=== PATIENT | male | born 1945 | race Caucasian/White ===

== ENCOUNTER 2016-06-05 07:54 | Inpatient (IN) | payer MEDICARE ==
[~2016-06-05] VITALS: Ht 182.9 cm; Wt 80.8 kg
--- NOTE | ~2016-06-05 | CATH ---
Cardiac Diagnostic + PCI Report Demographics Patient Name TERENCE Dixon Gender Male Date of 1945 Age 70 year(s) Patient Number [id number] Date of Study 06/05/2016 Visit Number [id number] Room Number 310 Corporate ID Ht 182.88 cm Wt 80.74 kg Accession Number [id number] BSA 2.03 m kg/m Referring Mookie Love Primary Physician Physician MD Estephania Mirza MD Performing Tunuguntma Secondary Physician Physician Robyn SANTOS [facility] Ass[facility] Physician Physician Robyn SANTOS Interventional [facility] Physician Linseed Oil Boiler Physician Robyn SANTOS Findings and Conclusions Diagnostic Findings and Conclusion ANTERIOR STEMI: Severe 2 vessel CAD with 100% mLAD being the culprit lesion and 99% dCirc lesion. RCA without any significant obstructive CAD (non selective image only, attempted 3 different catheters to selectively engage, JR4, Pino right and AR mod - but did not persist given h/o CKD and I wanted to minimize contrast use). Previously placed LAD and RCA stents are patent. Diagnostic Recommendations Immediate PCI of LAD and Circ. Interventional Findings and Conclusion Successful PCI of mLAD lesion with 3.0x16 Synergy APRYL, return of SHAJI III flow. Successful balloon angioplasty of D3 lesion prior to stenting, vessel is too small to stent, plan was to keep artery open, and it was after PCI of mid LAD. Successful PCI of dCirc lesion with 3.0x28 Synergy APRYL, return of SHAJI III flow. Moderate diffuse disease in mid cx proximal to stented segment. Interventional Recommendations Dual antiplatelet therapy for a minimum of 1 year. Continued risk factor modification and aggressive medical therapy for CAD. Neurology to see regarding the continued use of Coumadin for an old stroke. I would like to discontinue so we can continue asa and brilinta post STEMI in patient with numerous stents and residual moderate disease in mid Cx and small diagonal branch. Cardiac Rehab for education and exercise instruction. Follow up with an [facility] provider in 7 days post discharge. Procedure Description The patient was emergently brought to the diagnostic cardiac catheterization laboratory in a non-sedated state. Informed consent was obtained in the written and verbal form after the risks and benefits were explained. The patient and family had no further questions and agreed to proceed. The planned puncture-incision site(s) were shaved and prepped with ChloraPrep and draped in the usual sterile manner. Conscious sedation, supplemental oxygen, and pain control medications were delivered by a registered nurse under physician guidance. Surface ECG rhythm, blood pressure measurement, and pulse oximetry were monitored throughout the procedure. Arterial access. The right radial access site was infiltrated with lidocaine. The vessel was entered with the Seldinger technique. A 6Fr sheath was advanced into the vessel and used for catheter placement. Selective right coronary angiography. A JR4 catheter was advanced into the right coronary vessel ostium under fluoroscopic guidance. Contrast was injected by hand. Images were obtained in multiple projections. Selective left coronary angiography. A EBU 3.5 guide catheter was advanced into the left coronary vessel ostium under Fluoroscopic guidance. Contrast was injected by hand. Images were obtained in multiple projections. Angioplasty and Stent Placement: A EBU 3.5 guiding catheter was used to intubate the vessel. A 0.14 Runthrough wire was then used to cross the lesion. A 2.5x12 Emerge balloon catheter was placed across the LAD lesion and inflated multiple times. The balloon catheter was removed and reprepped. A second 0.14 Runthrough wire was advanced down the D3 vessel and a 2.0x15 Emerge balloon was placed across the D3 lesion and inflated multiple times. That balloon catheter was then removed. A 3.0x16 Synergy Drug Eluting Stent was placed across the LAD lesion and inflated. Next, the Runthrough wire was repositioned into the the Circumflex artery. The 2.5x12 Emerge balloon was placed across the distal Circumflex lesion and inflated. The balloon catheter was then removed. A 3.0x28 Synergy Drug Eluting Stent was placed across the Circumflex lesion and inflated. Post placement angiograms were performed. Selective right coronary angiography. Attempts were again made to better engage the RCA with a WR and AR Mod catheters without success. Left heart catheterization. A angled pigtail catheter was advanced across the aortic valve to the left ventricle under fluoroscopic guidance. Resting hemodynamics were obtained. Arterial artery hemostasis was achieved with 13 cc air in the TR band. The patient was transferred to the ICU via a monitored cart accompanied by a director of labor relations nurse. The patient left the laboratory in stable condition. Diagnostic Cath Status: Emergency Interventional Cath Status: Emergency Procedure Procedure Type Diagnostic procedure:Angiography:, Coronary Angios w/LHC PCI procedure:Drug Eluting Coronary Stent:, LAD, CFX, PTCA:, Diagonal Indications: Acute IA, chronic kidney disease, Prior PCI with stent placement, Hyperlipidemia, Hypertension and Previous stroke. The procedure was explained in detail to the patient. Risks, complications and alternative treatments were reviewed. Written consent was obtained. Medications Reviewed with Patient prior to Procedure. Complications: No Complication. Angiographic Findings Dominance: Right Cardiac Arteries and Lesion Findings LMCA: Normal (0% Stenosis). LAD: Abnormal. Lesion on Mid LAD: Distal subsection.100% stenosis 16 mm length reduced to 0%. Pre procedure SHAJI 0 flow was noted. Post Procedure SHAJI III flow was present. The guidewire cross was successful.A poor run off was present.Culprit lesion. Treatment results:Interventional treatment was successful. Devices used - RUNTHROUGH WIRE 0.014" X 180CM. Number of passes: 1. - CATH BAL RX EMERGE 2.5X12. 5 inflation(s) to a max pressure of: 12 rubén. - CATH STENT SYNERGY 3.0 X 16. 1 inflation(s) to a max pressure of: 14 rubén. Lesion on 3rd Diag: Proximal subsection.80% stenosis reduced to 0%. Pre procedure SHAJI II flow was noted. Post Procedure SHAJI III flow was present. The guidewire cross was successful. Treatment results:Interventional treatment was successful. Devices used - RUNTHROUGH WIRE 0.014" X 180CM. Number of passes: 1. - CATH BAL RX EMERGE 2.0X15. 2 inflation(s) to a max pressure of: 6 rubén. LCx: Abnormal. Lesion on Dist CX: 99% stenosis 28 mm length reduced to 0%. Pre procedure SHAJI II flow was noted. Post Procedure SHAJI III flow was present. The guidewire cross was successful. Devices used - CATH BAL RX EMERGE 2.5X12. 1 inflation(s) to a max pressure of: 8 rubén. - CATH STENT SYNERGY 3.0 X 28. 1 inflation(s) to a max pressure of: 14 rbuén. Lesion on Mid CX: 40% stenosis . Lesion on 1st Ob Elena% stenosis . RCA: Abnormal.There is a previous stent on Mid RCA showing wide patency. Lesion on Mid RCA: 20% stenosis . Coronary Tree Procedure Data Procedure Date Date: 06/05/2016Start: 08:42 AMEnd: 09:46 AM Entry Locations - Percutaneous access was performed through the Right Radial artery (Primary location). A 6 Fr sheath was inserted. Hemostasis was successfully obtained using a TR band. Closure Comments: 13 cc air in TR Band. Procedure Medications Order and Administration + + + + + !Time !Medication !Dosage !Route ! + + + + 06/05/2016 08:44 !Radial Verapamil !2.5 mg !I.A. ! !AM ! ! ! ! + + + + 06/05/2016 08:46 !Fentanyl !50 mcg !I.V. ! !AM ! ! ! ! + + + + + 06/05/2016 08:46 !Versed !1 mg !I.V. ! !AM ! ! ! ! + + + + 06/05/2016 08:54 !Angiomax (Bivalirudin) !12 ml !I.V. bolus ! !AM !(ACC_5) ! ! ! + + + + + !06/05/2016 08:57 !Brilinta (Ticagrelor) !180 mg !P.O. ! !AM !(ACC_20) ! ! ! + + + + + !06/05/2016 08:59 !Angiomax (Bivalirudin) !1.75 mg/kg/hr!I.V. drip ! !AM !(ACC_5) ! ! ! + + + + + !06/05/2016 09:21 !Nitroglycerin !100 mcg !I.C. ! !AM ! ! ! ! + + + + + Devices Used - [facility] 6FR MULTIPACK CATHETERSwas used for:Right coronary angiography. - AGUIDE CATHETER 6FR EBU 3.5 100CMwas used for:Left coronary angiography. - [facility] 5F WR CATHETER 100CMwas used for:Right coronary angiography.Unable to cannulate the vessel. - ACATH 6F AR MOD CATHETER 100CMwas used for:Right coronary angiography.Unable to cannulate the vessel. - ACATH 6FR MULTIPACK CATHETERSwas used for:LV Pressures. - AGUIDE CATHETER 6FR EBU 3.5 100CMwas used for:LAD Intervention. - AGUIDE CATHETER 6FR EBU 3.5 100CMwas used for:Circumflex Intervention. Contrast Material - Isovue 13517 ml - Isovue 83859 ml Fluoroscopy Time: Diagnostic: 16:42 minutes. Total: 16:42 minutes. Fluoroscopy Dose: Diagnostic: 1432 mGy. Total: 1432 mGy. Estimated Blood Loss: 10 ml. Medical History Allergies - Other:(Niacin). Risk Factors The patient risk factors include:prior PCI on 11/22/2000;cerebrovascular disease, hypercholesterolemia, hypertension, dyslipidemia and renal failure. Admission Data Admission Date: 06/05/2016 Admission Time: 09:49 AM Admit Source: Emergency department Insurance Payors: Medicare. Clinical Evaluation Leading to Procedure Diagnosed on 06/05/2016 08:00 AM. - The patient's CAD presentation was assessed as: STEMI. - Anti-anginal medications were prescribed during the past two weeks. The medication is: Beta Blockers. Hemodynamics Condition: Rest Estimated: Heart Rate: 73 bpm Pressures (mmHg) +-----+ + !Site !Pressure ! +-----+ + !AO !80/48 (60) ! +-----+ + !LV !108/8 ,19 ! +-----+ + !AO !117/57 (84) ! +-----+ + !LV !103/4 ,27 ! +-----+ + Valve Gradients and Areas + +---------+---------+---------+ +---------+ + !Valve !Peak !Mean !Area !Index !Flow !Source ! + +---------+---------+---------+ +---------+ + !Aortic !0 !0 ! ! ! ! ! + +---------+---------+---------+ +---------+ + !Aortic !0 !0 ! ! ! ! ! + +---------+---------+---------+ +---------+ + Signatures
--- NOTE | ~2016-06-05 | ECH ---
Transthoracic Echocardiography Report (TTE) Demographics Patient Name SOFIA PRATT Date of Study 06/05/2016 Patient Number [id number] Visit Number [id number] Date of 1945 Room Number 310 Gender Male Number Age 70 year(s) Referring Mark Carlson Laborer Driver Luna [facility] Physician Physician Interpreting Mo Miramontes MD Shovel Mechanic Physician Supervising Ordering Mark Carlson MD/LUAN Physician Nurse Stress Fashion Consultant Conclusions Summary Technically good exam. The estimated left ventricular ejection fraction is 60%. Diastolic assessment reveals Grade II pseudonormal diastolic function . Mild-moderate mitral regurgitation by color Doppler. There is mild aortic regurgitation by color Doppler. Mild tricuspid regurgitation by color Doppler. There is mild pulmonary hypertension. The pulmonary pressure (RVSP) is 35 mmHg. The ascending aorta appears mildly dilated. The maximum diameter measures 3.6 cm. Procedure Type of Study TTE procedure:Echo Complete SF. Procedure Date Date: 06/05/2016 Start: 11:29 AM Technical Quality: Good visualization Indications:Chest pain and Coronary artery disease. Additional Indications:STEMI,s/p PCI Appropriate Use Criteria: 9 Height: 72 inches Weight: 178 pounds BSA: 2.03 m Rhythm: NSR HR: 67 bpm BP: 114/61 mmHg Allergies - Other:(Niacin). M-Mode/2D Measurements LV Diastolic Dimension: 5.51 cm LV Systolic Dimension: 4.35 cm LV Septum Diastolic: 0.75 cm LV PW Diastolic: 0.81 cm AO Root Dimension: 3.26 cm Cardiac Output: 6.54 l/min LA Dimension: 4.05 cm Cardiac Index: 3.22 l/min*m RV Diastolic Dimension: 3.29 cm LA volume index: 26 ml/m LVOT: 2.2 cm LVOT VTI: 25.71 cm RV Base: 3.4 cm LV Stroke volume: 97.68 ml RV Mid: 2.4 cm LV Stroke volume index: 48.12 ml/m TAPSE: 1.9 cm TDI-S': 12 cm/s Doppler Measurements AV Peak Velocity: 1.5 m/s MV Peak E-Wave: 1.01 m/s AV Peak Gradient: 9 mmHg MV Peak A-Wave: 0.99 m/s AV Mean Gradient: 5.29 mmHg MV E/A Ratio: 1.02 LVOT Peak Velocity: 1.13 m/s MV P1/2t: 66.1 msec AV Area (Continuity):2.86 cm AV P1/2t: 555.2 msec MV Deceleration Time: 232.1 msec TR Velocity:2.85 m/s MV Area (PHT): 3.33 cm TR Gradient:32.49 mmHg PV Peak Velocity: 0.77 m/s Estimated RAP:3 mmHg PV Peak Gradient: 2.39 mmHg Estimated RVSP: 35 mmHg Estimated PASP: 35.49 mmHg E' Septal Velocity: 0.08 m/s A' Septal Velocity: 0.12 m/s E' Lateral Velocity: 0.09 m/s A' Lateral Velocity: 0.12 m/s RA Area: 10.42 cm Findings Left Ventricle Normal left ventricle size and function. Diastolic assessment reveals Grade II pseudonormal diastolic function . Right Ventricle Normal right ventricle structure and function. Left Atrium Normal left atrial size. Right Atrium Normal right atrial size. Mitral Valve Normal mitral valve structure and function. Mild-moderate mitral regurgitation by color Doppler. Aortic Valve The aortic valve is mildly sclerotic. There is mild aortic regurgitation by color Doppler. Tricuspid Valve Normal tricuspid valve structure and function. Mild tricuspid regurgitation by color Doppler. There is mild pulmonary hypertension. The pulmonary pressure (RVSP) is 35 mmHg. Pulmonic Valve Normal pulmonic valve structure and function. Pericardial Effusion No evidence of pericardial effusion. Miscellaneous The ascending aorta appears mildly dilated. The maximum diameter measures 3.6 cm. Pleural Effusion No evidence of pleural effusion. Contractility Score LV regional wall motion:(0-Non visualized 1-Normal 2-Hypokinesis 3-Akinesis 4-Dyskinesis 5-Aneurysm) Signature
--- NOTE | 2016-06-08 10:26 | HP ---
ADMIT: 06/05/2016 RM/LOC: 310 [facility] MR#: [id number] [address] [address] JEFRY PRATT Destiny [address] [place] [address] History and Physical SEX: M AGE: 70 : 1945 DATE OF SERVICE: REASON FOR ADMISSION: Anterior ST elevated myocardial infarction. Jovanna Damon RN, scribing for Dr. Robyn Flores. HISTORY OF PRESENT ILLNESS: Jefry is a pleasant 70-year-old gentleman, who presented to [facility] via EMS this morning with complaints of chest discomfort. He is actually from [place] and was [place] when he developed chest discomfort that he described as a severe tightness, 10/10, radiating down his arms. He [place] his [place] and had his call 911. The patient was brought to [facility] via EMS. I do not have EKG from ambulance crew but on arrival, EKG was performed, demonstrating anterior ST elevation. He continued to have chest discomfort despite nitroglycerin at an 8/10 that he described as a pressure. He is somewhat confused in the ER with direct questions regarding chest discomfort, resolution with medications, he responds with past medical history instead. His provides much of his information today. Jefry actually saw Dr. Best two days ago in [place] for checkup at that time, he had been doing well. He does have history of chronic kidney disease stage 3 and was recently taken off spironolactone because of abdominal symptoms. He states he cannot take Plavix because of nausea. He is also allergic to Niaspan. He is on Coumadin with history of stroke in the past. Lab work is pending currently. In the emergency room, he is given Lopressor, aspirin, nitroglycerin, and heparin. PAST MEDICAL HISTORY: 1. Coronary artery disease, status post PCI to mid LAD and mid RCA in 2000. Last echocardiogram showed EF of 60% with mild aortic regurgitation. 2. Kolb's esophagus. 3. BPH. 4. History of CVA on coumadin for several years. 5. Osteoarthritis. 6. Obstructive sleep apnea, unable to use CPAP. PAST SURGICAL HISTORY: 1. PCI. 2. Cholecystectomy. 3. Tonsillectomy with adenoidectomy. ALLERGIES: DOCUMENTED ALLERGIES INCLUDE NIASPAN. THE PATIENT REPORTS INTOLERANCE TO PLAVIX. HOME MEDICATIONS: 1. Amlodipine 10 daily. 2. Aspirin 81 mg daily. 3. Atenolol 25 daily. ADMIT: 06/05/2016 RM/LOC: 310 [facility] MR#: [id number] [address] [address] JEFRY PRATT [address] [place] [address] History and Physical SEX: M AGE: 70 : 1945 4. CoQ10 at 100 daily. 5. CPAP periodically at night. 6. Losartan 50 daily. 7. Multivitamin daily. 8. [place]annock-3 daily. 9. He is in a REVEAL study for a study drug. 10.Pantoprazole 40 mg daily. 11.Terazosin two capsules totaling 4 mg at bedtime. 12.Tramadol 50 every 6 hours p.r.n. 13.Coumadin managed by [facility]. 14.Zinc 50 mg daily. SOCIAL HISTORY: Jefry is . He lives at home with his . He has two daughters. He has never been a smoker. He denies any alcohol, drug, or caffeine use. He follows a low-fat, low-cholesterol, low-salt diet. REVIEW OF SYSTEMS: Unobtainable due to the patient's continued chest pain and confusion. PHYSICAL EXAMINATION: VITAL SIGNS: Blood pressure 154/79, heart rate 72, respirations 16, oxygenation 99% on O2. GENERAL: Alert, oriented x3, but somewhat confused on history. SKIN: [place], warm and dry. EYES: Sclerae clear. No xanthelasmas. ENT: Oral mucosa is pink and moist. No jugular venous distention or carotid bruits. CHEST: Respirations are even and unlabored. Lungs are clear to auscultation. HEART: Regular rate and rhythm. Normal S1, S2. No murmurs, rubs or gallops. ABDOMEN: Soft and nontender. MUSCULOSKELETAL: Gait is normal. EXTREMITIES: Peripheral pulses palpable. No clubbing, cyanosis or edema. PSYCHIATRIC: Alert and oriented. Mood and affect are appropriate. DIAGNOSTIC DATA: Lab work is pending. EKG shows ST elevation, anterior leads, with no reciprocal changes. ASSESSMENT AND PLAN: 1. ST elevated myocardial infarction, anterior leads, on EKG. 2. Anticoagulation, on Coumadin. It appears to be for h/o CVA. 3. Hypertension. 4. Hyperlipidemia. 5. History of cerebrovascular accident. ADMIT: 06/05/2016 RM/LOC: 310 [facility] MR#: [id number] [address] [place] [id number] JEFRY PRATT [address] [place] [address] History and Physical SEX: M AGE: 70 : 1945 I will take Jefry emergently to Cardiac Catheterization Lab given his EKG changes and continued symptoms. I discussed with him the risks and benefits, as well as to his given his current mental status. She states understanding and is agreeable to proceeding at this time. He does have chronic kidney disease and she is aware of increased complications because of that. I will amend my plan once cardiac catheterization has been completed. Since we can not use plavix and I do prefer pt being on brilinta since he is here with STEMI, I will have neurology evaluate and determine need to be on coumadin. I have read and agree with the documentation that has been completed regarding this visit. By signing this record, I attest that the documentation was completed in my physical presence and is an accurate record of the encounter. Jovanna Damno RN / Robyn Flores MD / hellen JOB #: [id number] CC: Robyn Flores, Attending Physician Robyn Flores, Family Physician Efren Best MD
[2016-06-08] MEDS ORDERED: NORVASC DPS10 MG PO (15:01)
[2016-06-08] MEDS ORDERED: TENORMIN-DPS25 MG PO (15:02)
[2016-06-08] MEDS ORDERED: ULTRAM DPS50 MG PO (15:02)
[2016-06-08] MEDS ORDERED: HYTRIN2 MG PO (15:02)
[2016-06-08] MEDS ORDERED: COZAAR DPS50 MG PO (15:02)
[2016-06-08] MEDS ORDERED: ASA CHILDREN'S81 MG PO (15:03)
[2016-06-08] MEDS ORDERED: PROTONIX40 MG PO (15:03)
[2016-06-08] MEDS ORDERED: OMEGA-3 DPS1000 MG PO (15:04)
[2016-06-08] MEDS ORDERED: COQ-10100 MG PO (15:04)
[2016-06-08] MEDS ORDERED: SINGULAIR10 MG PO (15:05)
[2016-06-08] MEDS ORDERED: ZINC50 M1 PO (15:05)
[2016-06-08] MEDS ORDERED: THERAPEUTIC MUL1 TAB PO (15:05)
[2016-06-08] MEDS ORDERED: LIPITOR80 MG PO (15:05)
[2016-06-08] MEDS ORDERED: NITROSTAT0.4 MG SL (15:06)
[2016-06-08] MEDS ORDERED: BRILINTA90 MG PO (15:06)
--- NOTE | 2016-06-10 15:36 | ER ---
ADMIT: 06/05/2016 RM/LOC: 310 [facility] MR#: [id number] [id number] [address] SOFIA PRATT [address] [place], [place] [address] Emergency Room Report SEX: M AGE: 70 : 1945 DATE: 06/05/2016 ADDENDUM: A 70-year-old white male coming in with chest pain. He has history of chest pain and stents. He was driving from [place] to [place] when he started to have chest pain. They drove him off the [place] and picked up by [facility] and they brought him over. They thought that he had an acute VA, however, he had no reciprocal leads. He did have some borderline V2, V3, and V1 changes. This could be ischemic. At this time, I did speak to Cardiology instructional technology coordinator, initiated cardiac routine, then she said she wanted to take him over to labeling associate. medical lab director orders then were initiated. He will be taken to labeling associate at this time. His pain is not getting better with nitroglycerin and morphine. CONDITION ON DISCHARGE: Critical, but stable at this time. Dakota Damico MD/ francescal JOB #: [id number] CC: Robyn Flores MD, Attending Physician Robyn Flores MD, Family Physician
--- NOTE | 2016-06-16 10:41 | CO ---
ADMIT: 06/05/2016 RM/LOC: 310 [facility] MR#: [id number] [address] [address] SOFIA PRATT [address] [place], [place] [address] Consultation SEX: M AGE: 70 : 1945 DATE OF CONSULTATION: 06/05/2016 ATTENDING PHYSICIAN: Robyn Flores CONSULTING PHYSICIAN: Jorge Hernandez MD REASON FOR CONSULTATION: Review of secondary stroke prevention. HISTORY OF PRESENT ILLNESS: The patient is a 70-year-old gentleman with medical history as outlined below and mainly history of lacunar stroke in 01/2004 who was admitted to [facility] with chest pain, underwent left heart catheterization with stent placement. The patient is placed on Brilinta and aspirin. The Cardiology taking questions secondary stroke prevention, but he needs to be on anticoagulation. We obtained medical records from his admission in 2003 and as per review, It appears to be that the patient suffered from lacunar infarction in the right dorsal lateral margin of the thalamus and subcortex. He was already on aspirin prior to the stroke, therefore the Plavix was added. Unfortunately, the patient did not tolerate the Plavix, therefore he was started on Coumadin in addition to the aspirin. I did not identify any other reason for anticoagulation. The patient does not have atrial fibrillation in history. In fact, he visited with MAKAYLA 2 days ago and as per note, there is no mention of atrial fibrillation. The patient also denies any testing for hypercoagulable state that would be a reason for anticoagulation. He did not follow with neurologist after his stroke, but I believe he was supposed to be referred to . PAST MEDICAL HISTORY: CAD status post PCI in 2000 and today, history of right subcortical thalamic lacunar stroke in 2003, hypertension, hyperlipidemia, Kolb's esophagus, BPH, JAS, cholecystectomy, and tonsillectomy. ALLERGIES: THE PATIENT IS INTOLERANT TO PLAVIX. ALLERGIES INCLUDE NIASPAN. HOME MEDICATIONS: Included: 1. Amlodipine. 2. Aspirin. 3. Atenolol. 4. Coenzyme Q10. 5. Losartan. 6. Multivitamins. 7. [place]. 8. He is on REVEAL study drug. 9. Pantoprazole. 10.Terazosin. 11.Tramadol. 12.Coumadin. 13.Zinc. ADMIT: 06/05/2016 RM/LOC: 310 [facility] MR#: [id number] [address] [address] SOFIA PRATT [address] [place] [address] Consultation SEX: M AGE: 70 : 1945 SOCIAL HISTORY: No alcohol. No smoking. REVIEW OF SYSTEMS: All systems reviewed, negative except as per HPI and cardiology, chest pain. FAMILY HISTORY: Noncontributory. Mother had Alzheimer disease. PHYSICAL EXAMINATION: VITAL SIGNS: 96.2 temperature, heart rate 75, respirations 16, blood pressure 114/61, and saturation 98% on room air. GENERAL: The patient appears to be in no acute discomfort examined while supine in bed. HEAD: Normocephalic. NECK: Supple. CHEST: Normal respiratory rises. CARDIOVASCULAR: Regular rate and rhythm. ABDOMEN: Nondistended. EXTREMITIES: No clubbing or cyanosis. There is a swelling in left lower extremity around the ankle. NEUROLOGICAL EXAMINATION: The patient is awake, alert, appropriately oriented. He does not have any issues with recent or remote memory. He is euthymic. Affect is congruent with mood. Cranial nerve examination reveals cranial nerve II, visual rodriguez intact. III, IV, and extraocular muscles intact. Pupils are equal and reactive. V, facial sensation is intact. VII, face is mildly asymmetric with left lower facial weakness which is subtle. Hearing to voice is intact for VII and IX and X. Uvula midline. Palate symmetric. XI shoulder shrug symmetric, XII tongue is midline, fairly moveable. Motor examination reveals very subtle left-sided weakness but otherwise full strength. Fine motor movements are slightly slower on left side. Sensory to touch, nonlateralizing. Reflexes hyperreflexia throughout, but downgoing toes bilaterally. No sustained clonus. Gait deferred as he is status post procedure. LABORATORY DATA: Labs reviewed. No head imaging available. Reviewed records ADMIT: 06/05/2016 RM/LOC: 310 [facility] MR#: [id number] [address] [address] SOFIA PRATT [address] [place] [address] Consultation SEX: M AGE: 70 : 1945 from the outside hospital, which is present in chart. ASSESSMENT: History of right thalamic lacunar ischemic stroke in 2003. Due to intolerance to Plavix he was started on Coumadin for secondary stroke prevention. PLAN: In regard to current situation, I believe that aspirin and Brilinta are more appropriate for secondary stroke prevention. Discussed with family in length and there is no need for anticoagulation in regards to this particular stroke. Thank you very much for this interesting consultation. Jorge Hernandez MD/ hellen JOB #: [id number] CC: Robyn Flores, Attending Physician Robyn Flores, Family Physician
--- NOTE | 2016-07-03 17:44 | DS ---
ADMIT: 06/05/2016 RM/LOC: 310 [facility] MR#: [id number] [address] [address] SOFIA PRATT [address] [place] [address] General Discharge Summary SEX: M AGE: 70 : 1945 ADMISSION DATE: 06/05/2016 DISCHARGE DATE: 06/07/2016 FINAL DIAGNOSES: 1. Anterior ST elevation myocardial infarction. 2. History of cerebrovascular accident, on Coumadin for anticoagulation. 3. Hypertension. 4. Hyperlipidemia. 5. Coronary artery disease, status post percutaneous coronary intervention of LAD and circumflex. CONSULTS: Dr. Hernandez for Neurology due to his history of a stroke. DIAGNOSTICS/PROCEDURES: Chest x-ray, 06/05/2016, probable minimal fibrotic or atelectatic changes in the left lung base, no acute findings. pipelines laborer report, severe two-vessel coronary artery disease with 100% mid LAD being the culprit lesion and 99% distal circumflex RCA. No significant obstructive coronary artery disease, non-selective images only. We were unable to engage. History of a previously placed LAD and RCA stent. Immediate PCI of the LAD and circumflex was undertaken at that time. Echocardiogram, 06/05/2016, showed an EF of 60%, [id number] mitral regurgitation, mild aortic regurgitation, mild tricuspid regurgitation, pulmonary artery systolic pressures of 35 mmHg with a mildly dilated ascending aorta of 3.6 cm. HOSPITAL COURSE: The patient admitted to the emergency room complaining of chest discomfort. He did have a known history of coronary artery disease, status post PCI to his diagonal and to his RCA in the past. His EKG demonstrated anterior ST elevation. He was taken emergently to the pipelines laborer where he was found to have 100% mid LAD stenosis along with a 99% distal circumflex stenosis which both received stents. He did have a history of a CVA and was on anticoagulation with Coumadin for that. Because of this, we did consult Neurology for recommendations on appropriate anticoagulation for CVA prevention. Dr. Hernandez saw the patient and recommended, because of his history of a right thalamic lacunar ischemic stroke in 2003 and his intolerance for Plavix, that aspirin and Brilinta be the best medications for anticoagulation for reduction of stroke and also for anticoagulation in the setting of his recent PCI and ST-elevated myocardial infarction. The next day, he had no chest pain or arrhythmias. He was started on Toprol and losartan was resumed. He was transferred to telemetry. His Coumadin was stopped in favor of aspirin and Brilinta. On 06/07/2016, he was felt stable for discharge. He was given a referral for cardiac rehab. He is scheduled to follow up with Dr. Boyd at [facility] in 1-2 weeks. DISCHARGE MEDICATIONS: Medications on discharge: 1. Aspirin 81 mg p.o. daily. 2. Brilinta 90 mg p.o. b.i.d. 3. Coenzyme Q10. 4. Cozaar 50 mg p.o. daily. 5. Hytrin 4 mg p.o. at bedtime. ADMIT: 06/05/2016 RM/LOC: 310 [facility] MR#: [id number] [address] [address] SOFIA PRATT [address] [place] [address] General Discharge Summary SEX: M AGE: 70 : 1945 6. Lipitor 80 mg p.o. at bedtime. 7. Norvasc 10 mg p.o. daily. 8. [place]-3. 9. Zinc 50 mg p.o. at bedtime. 10.Protonix 40 mg p.o. daily. 11.Singulair 10 mg p.o. at bedtime. 12.Therapeutic multivitamin one tab p.o. at bedtime. 13.Ultram 100 mg p.o. b.i.d. 14.He went home on atenolol 25 mg p.o. daily. 15.Warfarin was stopped. VITAL SIGNS AT DISCHARGE: Blood pressure 147/85, pulse of 89, respirations of 16, temp of 97.3. DISCHARGE DISPOSITION: To home. DISCHARGE CONDITION: Stable. AYAAN Haeys / Robyn Flores MD / hellen JOB #: [id number] CC: Robyn Flores MD, Attending Physician Robyn Flores MD, Family Physician
== END 2016-06-07 09:36 | disposition home or self-care (01) | DRG 247 ==
LOC: ER 07:54 → SSS 08:10 → 3ICU 09:49
PROVIDERS: ADMIT Internal Medicine Interventional Cardiology
PROC: 4A023N7 Measurement of Cardiac Sampling and Pressure, Left Heart, Percutaneous Approach (ICD-10-PCS; principal; 2016-06-05)
PROC: 027135Z Dilation of Coronary Artery, Two Arteries with Two Drug-eluting Intraluminal Devices, Percutaneous Approach (ICD-10-PCS; principal; 2016-06-05)
PROC: 02703ZZ Dilation of Coronary Artery, One Artery, Percutaneous Approach (ICD-10-PCS; principal; 2016-06-05)
PROC: B2111ZZ Fluoroscopy of Multiple Coronary Arteries using Low Osmolar Contrast (ICD-10-PCS; principal; 2016-06-05)
DX: I21.09 ST elevation (STEMI) myocardial infarction involving other coronary artery of anterior wall (principal); N18.3 Chronic kidney disease, stage 3 (moderate); I48.91 Unspecified atrial fibrillation; I12.9 Hypertensive chronic kidney disease with stage 1 through stage 4 chronic kidney disease, or unspecified chronic kidney disease; I25.10 Atherosclerotic heart disease of native coronary artery without angina pectoris; G47.33 Obstructive sleep apnea (adult) (pediatric); K22.70 Barrett's esophagus without dysplasia; E78.5 Hyperlipidemia, unspecified; M19.90 Unspecified osteoarthritis, unspecified site; N40.0 Benign prostatic hyperplasia without lower urinary tract symptoms; Z86.73 Personal history of transient ischemic attack (TIA), and cerebral infarction without residual deficits; Z79.01 Long term (current) use of anticoagulants; Z95.5 Presence of coronary angioplasty implant and graft; Z79.82 Long term (current) use of aspirin